=== PATIENT | male | born 1960 | race Caucasian/White ===

== ENCOUNTER → 2019-01-15 08:07 | Outpatient (CLI) | payer BC ==
[2015-12-30 12:02] VITALS: BMI 25.3
[~2019-01-15 08:07] MED LIST: MULTIPLE VITAMI1 TA1 PO; OXYCODONE HCL5 MG PO; PROTONIX40 MG PO
== END | disposition home or self-care (01) ==
LOC: D.US 08:07
PROVIDERS: ATTEND Family Medicine
DX: R94.5 Abnormal results of liver function studies (principal)

== ENCOUNTER → 2019-03-13 08:11 | Outpatient (CLI) | payer BC ==
[2015-12-30 12:02] VITALS: BMI 25.3
[2019-03-13 09:18] LABS: APTT 25.5 SECONDS (22.8-39.4); INR 1.1 (0.85-1.17); PROTIME 13.7 SECONDS (11.6-15.0)
[2019-03-13 09:35] LABS: ALBUMIN 4.2 g/dL (3.4-5.0); BILIRUBIN - DIRECT 0.17 mg/dL (0.00-0.30); BILIRUBIN - INDIRECT 0.69 mg/dL (0.00-1.00); BILIRUBIN - TOTAL 0.86 mg/dL (0.2-1.3); CHOL - HDL RATIO 5.6 ratio (2.3-4.9); LDL-HDL RATIO 3.7 ratio (1.5-3.5); PROTEIN - SERUM 7.6 g/dL (6.4-8.2)
[2019-03-13 09:46] LABS: % SATURATION 41 % (15-55); IRON 147 ug/dl (35-150); TOTAL IRON BIND CAPACITY 357 ug/dl (260-445); UNSAT IRON BIND CAPACITY 210 ug/dl (150-375)
[2019-03-16 12:08] LABS: MITOCHONDRIAL ANTIBODY <20.0 Units (0.0-20.0); SMOOTH MUSCLE ABS (ACTIN) 16 Units (0-19)
[2019-03-16 14:08] LABS: ANA REFLEX - ANTICHROMATIN ABS <0.2 AI (0.0-0.9); ANA REFLEX - CENTROMERE B ABS <0.2 AI (0.0-0.9); ANA REFLEX - DBL STRANDED DNA <1 IU/mL (0-9); ANA REFLEX - DIRECT Positive (Negative); ANA REFLEX - JO-1 AB <0.2 AI (0.0-0.9); ANA REFLEX - RNP ANTIBODIES 1.3 AI (0.0-0.9); ANA REFLEX - SCL-70 <0.2 AI (0.0-0.9); ANA REFLEX - SJOGRENS AB SSA <0.2 AI (0.0-0.9); ANA REFLEX - SJOGRENS AB SSB <0.2 AI (0.0-0.9); ANA REFLEX - SMITH AB <0.2 AI (0.0-0.9)
== END | disposition home or self-care (01) ==
LOC: D.LAB 08:11
PROVIDERS: ATTEND Internal Medicine Gastroenterology
DX: R94.5 Abnormal results of liver function studies (principal); K76.0 Fatty (change of) liver, not elsewhere classified

== ENCOUNTER → 2019-07-03 08:48 | Outpatient (CLI) | payer BC ==
[2015-12-30 12:02] VITALS: BMI 25.3
[2019-07-03 10:16] LABS: ALBUMIN 4.1 g/dL (3.4-5.0); BILIRUBIN - DIRECT 0.22 mg/dL (0.00-0.30); BILIRUBIN - INDIRECT 0.71 mg/dL (0.00-1.00); BILIRUBIN - TOTAL 0.93 mg/dL (0.2-1.3); PROTEIN - SERUM 7.4 g/dL (6.4-8.2)
== END | disposition home or self-care (01) ==
LOC: D.LAB 08:48 → D.US 10:30
PROVIDERS: ATTEND Internal Medicine Gastroenterology
DX: K76.0 Fatty (change of) liver, not elsewhere classified (principal)